=== PATIENT | male | born 2000 | race Caucasian/White ===

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

== ENCOUNTER 2020-04-20 23:19 | Emergency (ER) | payer MEDICAID ==
[2020-04-20] MEDS ORDERED: XYLOCAINE 1% HCL 20 ML MDV IJ ONE (23:20)
--- NOTE | 2020-04-20 23:22 | ERPHSYRPT ---
- History of Present Illness Time Seen by Provider: 04/20/20 23:22 Source: patient Exam Limitations: no limitations Physician History: This is a 19-year-old white male who has had left upper tooth ache for 2 days and a left earache that has worsened over the last 24 hours. Patient did use ibuprofen. There was some [id number] eardrops that were also used. The pain has worsened in his left ear. Patient has has no cough, no fever, no sore throat, no chest pain, no shortness of air. Timing/Duration: abrupt onset, this morning Severity: moderate ENT Location: ear (L), dental Prearrival Treatment: over the counter meds Associated Symptoms: ear pain (L), tooth pain (Upper molar on the left side), other Allergies/Adverse Reactions: No Known Drug Allergies Allergy (Verified 04/20/20 23:25) Hx Tetanus, Diphtheria Vaccination/Date Given: Yes Hx Influenza Vaccination/Date Given: No Hx Pneumococcal Vaccination/Date Given: No Travel Risk - International Travel Have you traveled outside of the country in past 3 weeks: No - Coronavirus Screening Are you exhibiting any of the following symptoms?: No Close contact with a COVID-19 positive Pt in past 14-21 Days: No - Review of Systems Constitutional: No Symptoms Eyes: No Symptoms Ears, Nose, & Throat: Ear Pain (Left), Other (Left upper molar dental pain) Respiratory: No Symptoms Cardiac: No Symptoms Abdominal/Gastrointestinal: No Symptoms Genitourinary Symptoms: No Symptoms Musculoskeletal: No Symptoms Skin: No Symptoms Neurological: No Symptoms Psychological: No Symptoms Endocrine: No Symptoms Hematologic/Lymphatic: No Symptoms Immunological/Allergic: No Symptoms All Other Systems: Reviewed and Negative - Past Medical History Pertinent Past Medical History: Yes Neurological History: Migraines ENT History: No Pertinent History Cardiac History: No Pertinent History Respiratory History: Asthma Endocrine Medical History: No Pertinent History Musculoskeletal History: No Pertinent History GI Medical History: GERD History: No Pertinent History Psycho-Social History: Depression Male Reproductive Disorders: No Pertinent History - Past Surgical History Past Surgical History: Yes Neuro Surgical History: No Pertinent History Cardiac: No Pertinent History Respiratory: No Pertinent History Gastrointestinal: No Pertinent History Genitourinary: No Pertinent History Musculoskeletal: No Pertinent History Male Surgical History: No Pertinent History Other Surgical History: T&A - Social History Smoking Status: Never smoker Exposure to second hand smoke: No Drug Use: none Patient Lives Alone: No - Nursing Vital Signs Nursing Vital Signs: Initial Vital Signs Temperature 98.3 F 04/20/20 23:20 Pulse Rate 86 04/20/20 23:20 Respiratory Rate 16 04/20/20 23:20 Blood Pressure 150/110 04/20/20 23:20 O2 Sat by Pulse Oximetry 97 04/20/20 23:20 Pain Scale Pain Intensity 8 - Physical Exam General Appearance: no apparent distress, alert, anxiety Eye Exam: bilateral eye: normal inspection, PERRL, EOMI Ear Exam: right ear: canal normal, TM normal, left ear: swelling (Left ear canal), tenderness (Left ear canal), TM dull, bilateral ear: auricle normal Nasal Exam: normal inspection Throat Exam: pharynx normal, dental tenderness (Upper molar with fracture on left side) Neck Exam: normal inspection, non-tender, supple, full range of motion, trachea midline Cardiovascular/Respiratory Exam: chest non-tender, no respiratory distress Abdominal Exam: non-tender Neurologic Exam: alert, oriented x 3, cooperative, integration architect II-XII nml as tested, no rmal mood/affect, nml cerebellar function, nml station & gait, sensation nml Skin Exam: normal color, warm, dry SpO2 Interpretation: normal O2 Delivery: Room Air - Course Nursing assessment & vital signs reviewed: Yes - Progress Progress: unchanged Counseled pt/family regarding: diagnosis, need for follow-up - Departure Departure Disposition: Home Clinical Impression: Pain, dental, Left otitis media Condition: Stable Critical Care Time: No Additional Instructions: Use Tylenol and ibuprofen for pain control. Follow-up with a dentist for evaluation and management of your dental pain. Take your antibiotics as prescribed. Prescriptions: Cephalexin Mh 500 mg [Keflex 500 mg] 500 mg PO TID #21 capsule
[2020-04-20] MEDS ORDERED: NORCO 5/325 MG PO ONE ×2 (23:51→23:52)
[2020-04-20] MEDS ORDERED: Rocephin 1000 MG INJ IM ONE (23:51)
[2020-04-20] MEDS ORDERED: DELTASONE 20 MG ONE (23:57)
[2020-04-20] MEDS ORDERED: Rocephin 1000 MG INJ ONE (23:58)
[2020-04-20] MEDS ORDERED: NORCO 5/325 MG ONE (23:58)
[2020-04-21 00:28] VITALS: BP 132/96; PULSE 84; O2SAT 99
[2020-04-21] MEDS ORDERED: DELTASONE 20 MG PO ONE (23:51)
== END 2020-04-21 00:27 | disposition home or self-care (01) ==
LOC: ED 23:19
DX: K08.89 Other specified disorders of teeth and supporting structures (principal); H66.92 Otitis media, unspecified, left ear
CPT/HCPCS: 96372; 99284; J0696; A9270-GY

== ENCOUNTER 2020-05-26 17:42 | Emergency (ER) | payer MEDICAID ==
--- NOTE | 2020-05-26 17:48 | ERPHSYRPT ---
- History of Present Illness Time Seen by Provider: 05/26/20 17:48 Source: patient Exam Limitations: no limitations Physician History: This is a 19-year-old white male who has a history of a left ear infection approximately 6 to 8 weeks ago. This morning, approximately 4 AM he noticed the left ear hurting again it has worsened throughout the day. Patient has not had a fever. He has no sore throat. He has no cough. He has had no fevers. He has no myalgias or arthralgias. He has no known drug allergies. Timing/Duration: abrupt onset, this morning Severity: moderate ENT Location: ear (L) Prearrival Treatment: no prearrival treatment Modifying Factors: Improves With: nothing Associated Symptoms: ear pain (L), No cough, No fever, No chills Allergies/Adverse Reactions: No Known Drug Allergies Allergy (Verified 05/26/20 17:49) Hx Tetanus, Diphtheria Vaccination/Date Given: Yes Hx Influenza Vaccination/Date Given: No Hx Pneumococcal Vaccination/Date Given: No Travel Risk - International Travel Have you traveled outside of the country in past 3 weeks: No - Coronavirus Screening Are you exhibiting any of the following symptoms?: No Close contact with a COVID-19 positive Pt in past 14-21 Days: No - Review of Systems Constitutional: No Symptoms Eyes: No Symptoms Ears, Nose, & Throat: Ear Pain (left) Respiratory: No Symptoms Cardiac: No Symptoms Abdominal/Gastrointestinal: No Symptoms Genitourinary Symptoms: No Symptoms Musculoskeletal: No Symptoms Skin: No Symptoms Neurological: No Symptoms Psychological: No Symptoms Endocrine: No Symptoms Hematologic/Lymphatic: No Symptoms Immunological/Allergic: No Symptoms All Other Systems: Reviewed and Negative - Past Medical History Pertinent Past Medical History: Yes Neurological History: Migraines ENT History: No Pertinent History Cardiac History: No Pertinent History Respiratory History: Asthma Endocrine Medical History: No Pertinent History Musculoskeletal History: No Pertinent History GI Medical History: GERD History: No Pertinent History Psycho-Social History: Depression Male Reproductive Disorders: No Pertinent History - Past Surgical History Past Surgical History: Yes Neuro Surgical History: No Pertinent History Cardiac: No Pertinent History Respiratory: No Pertinent History Gastrointestinal: No Pertinent History Genitourinary: No Pertinent History Musculoskeletal: No Pertinent History Male Surgical History: No Pertinent History Other Surgical History: T&A - Social History Smoking Status: Never smoker How long have you smoked: 5 Exposure to second hand smoke: No Drug Use: none Patient Lives Alone: No - Nursing Vital Signs Nursing Vital Signs: Initial Vital Signs Temperature 98.3 F 05/26/20 17:49 Pulse Rate 89 05/26/20 17:49 Respiratory Rate 18 05/26/20 17:49 Blood Pressure 149/71 05/26/20 17:49 O2 Sat by Pulse Oximetry 97 05/26/20 17:49 Pain Scale Pain Intensity 6 - Physical Exam General Appearance: no apparent distress, alert, anxiety Eye Exam: bilateral eye: normal inspection, PERRL, EOMI Ear Exam: right ear: canal normal, TM normal, left ear: erythema, tenderness, TM red, bilateral ear: auricle normal Nasal Exam: normal inspection Throat Exam: normal, pharynx normal Neck Exam: normal inspection, non-tender, supple, full range of motion, trachea midline Cardiovascular/Respiratory Exam: chest non-tender Abdominal Exam: non-tender Neurologic Exam: alert, oriented x 3, cooperative, qa developer II-XII nml as tested, normal mood/affect, nml cerebellar function, nml station & gait, sensation nml Skin Exam: normal color, warm, dry SpO2 Interpretation: normal O2 Delivery: Room Air - Course Nursing assessment & vital signs reviewed: Yes Ordered Tests: Medication Summary Generic Name Dose Route Start Last Admin Trade Name Freq PRN Reason Stop Dose Admin Prednisone 20 mg 05/27/20 18:25 05/26/20 18:28 Deltasone 20 Mg PO 05/27/20 18:26 20 mg STAT ONE Administration Discontinued Medications Generic Name Dose Route Start Last Admin Trade Name Freq PRN Reason Stop Dose Admin Azithromycin 500 mg 05/26/20 18:24 05/26/20 18:28 Zithromax 250 Mg Tablet PO 05/26/20 18:25 500 mg STAT ONE Administration Azithromycin Confirm 05/26/20 18:27 Zithromax 250 Mg Tablet Administered 05/26/20 18:28 Dose 500 mg .ROUTE .STK-MED ONE Prednisone Confirm 05/26/20 18:27 Deltasone 20 Mg Administered 05/26/20 18:28 Dose 20 mg .ROUTE .STK-MED ONE - Progress Progress: unchanged Counseled pt/family regarding: diagnosis, need for follow-up - Departure Departure Disposition: Home Clinical Impression: Left otitis media Condition: Stable Critical Care Time: No Referrals: ARLENE NELSON [Primary Care Provider] - Additional Instructions: Use Tylenol for pain. Follow-up scribing physician if symptoms persist. 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 Prescriptions: Prednisone 5 mg [Deltasone 5 mg] 5 mg PO TID #12 tablet Azithromycin 250 mg [Zithromax 250 MG TABLET] 250 mg PO ZPACK #6 tablet
[2020-05-26 17:54] VITALS: BP 149/71; PULSE 89; O2SAT 97
[2020-05-26] MEDS ORDERED: Zithromax 250 MG TABLET PO ONE (18:24)
[2020-05-26] MEDS ORDERED: Zithromax 250 MG TABLET ONE (18:27)
[2020-05-26] MEDS ORDERED: DELTASONE 20 MG ONE (18:27)
[2020-05-27] MEDS ORDERED: DELTASONE 20 MG PO ONE (18:25)
== END 2020-05-26 18:56 | disposition home or self-care (01) ==
LOC: ED 17:42
DX: H66.92 Otitis media, unspecified, left ear (principal)
CPT/HCPCS: 99283; A9270-GY

== ENCOUNTER 2024-04-23 02:04 | Emergency (ER) | payer BC ==
[2024-04-23 02:29] VITALS: TEMP 98.4
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
--- NOTE | 2024-04-23 03:48 | XRAY ---
CLINICAL HISTORY: neck pain COMPARISON: No previous studies are available for comparison. TECHNIQUE: CT scan of the cervical spine was performed without the administration of intravenous contrast. Contiguous axial images were obtained from the skull base to the upper thoracic spine. Coronal and sagittal reformatted images were also reviewed. One of the following dose reduction techniques was utilized for this exam. Automated exposure control, adjustment of the mA and/or kV according to patient size, and use of iterative reconstruction. CTDI: 21.66mGy, DLP: 554.81mGy*cm. FINDINGS: Vertebrae: The vertebral bodies are normal in height and alignment. Mild degenerative changes are identified in cervical spine with osteophytes. No evidence of acute fracture or dislocation. The cortical and trabecular bone patterns are normal. Small bone island is identified in dens Normal configuration of the posterior elements. Small sclerotic focus is identified along the superior articular facet of the visualized T3 vertebral body likely bone island. Intervertebral Discs: The intervertebral disc spaces are preserved. No calcifications or ossifications were noted within the discs. At C2-C3, no disc bulge is identified. At C3-C4, 1.8 mm disc bulge with osteophytes causing thecal sac indentation. No evidence of neural foraminal narrowing. At C4-C5, 2.3 mm disc bulge causing thecal sac indentation and mild right-sided neural foraminal narrowing. No neural foraminal stenosis on left side. At C5-C6, 2.8 mm disc bulge with osteophytes causing thecal sac indentation and mild bilateral neural foramina narrowing. At C6-C7, 2.3 mm disc bulge with osteophytes causing thecal sac indentation with no gross neural foraminal stenosis bilaterally. Facet Joints: The facet joints are normal without evidence of dislocation, subluxation, or significant degenerative changes. Prevertebral Soft Tissues: Paravertebral soft tissues are grossly normal. Additional Findings: Mucosal thickening identified in right maxillary sinus on covered images IMPRESSION: 1. No evidence of acute fracture, or dislocation. 2. Mild cervical spondylosis, without spondylolisthesis. 3. Disc bulge/ disc with osteophytes are identified at C3-C4 C4-C5 C5-C6 and C6-C7 levels, 1, however no significant thecal sac or neural foraminal compression. 4. Mild right maxillary sinusitis on covered images Electronically Signed by: Adria Lira MD. (04/23/2024 03:45:16 EDT)
--- NOTE | 2024-04-23 04:02 | XRAY ---
CLINICAL HISTORY: DECREASED O2 SATS COMPARISON: None. TECHNIQUE: Contiguous axial CT images of the chest were acquired without contrast. Coronal and sagittal reconstructions were obtained. One of the following dose reduction techniques were utilized for this exam: Automated exposure control, adjustment of the mA and/or kV according to patient size, use of iterative reconstruction. FINDINGS: The scanned pulmonary parenchyma shows no definite consolidative lesions. Left upper lung lobe calcified nodule, measuring about 3 mm suggestive of old granuloma. No free or encysted pleural effusion. Heart size is normal, and there is no pericardial effusion. No pathologically enlarged mediastinal, hilar or axillary lymph node identified. There is no definite mass lesion in the chest wall. A well-defined rounded hypodense lesion seen at the spleen, measuring about 3 x 2.6 cm, likely cyst. The visualized aspect of the left shoulder bones reveals a lucent line within the distal clavicle. IMPRESSION: 1. No acute cardiopulmonary pathology. 2. Left upper lung lobe small calcified nodule, measuring 3 mm suggestive of old granuloma. 3. The visualized aspect of the left shoulder bones reveals a lucent line within the distal left clavicle, could represent a non-displaced fracture. 4. Hypodense lesion seen within the spleen, likely cyst, would recommend ultrasound abdomen for further evaluation if clinically warranted. Electronically Signed by: Adria Lira MD. (04/23/2024 03:58:41 EDT)
--- NOTE | 2024-04-23 04:16 | XRAY ---
CLINICAL HISTORY: headache COMPARISON: None. TECHNIQUE: Axial noncontrast CT scan of the brain was performed from the skull base to the high parietal region with coronal and sagittal reformats. One of the following dose reduction techniques was utilized for this exam: Automated exposure control, adjustment of the mA and/or kV according to patient size, use of iterative reconstruction. CTDI: 53.92mGY, DLP: 1016.25mGy*cm. FINDINGS: The visualized brain parenchyma shows normal appearance. No focal parenchymal abnormalities are demonstrated. Nicholson-white matter differentiation is maintained. No midline shifts or deformity. No intracerebral or extra axial hematoma. Normal size and configuration of the cerebral ventricles. Normal CT appearance of the posterior fossa structures namely the cerebellar hemispheres, brainstem, and cerebellar peduncles. The cerebello-pontine angles are clear. The osseous structures in the skull base are unremarkable. No definite calvarium fractures. Polypoidal mucosal thickening of the right maxillary sinus. IMPRESSION: 1. Normal noncontrast CT of the brain. No evidence of established infarction, intracranial or extracranial hemorrhage. 2. Right maxillary chronic sinusitis. Electronically Signed by: Adria Lira MD. (04/23/2024 04:13:17 EDT)
--- NOTE | 2024-04-23 04:21 | XRAY ---
CLINICAL HISTORY: left shoulder pain COMPARISON: None. TECHNIQUE: Thin axial images of the left shoulder joint without contrast were obtained with sagittal and coronal reconstruction. One of the following dose reduction techniques were utilized for this exam: Automated exposure control, adjustment of the mA and/or kV according to patient size, and use of iterative reconstruction. FINDINGS: Bones: Undisplaced fracture is identified at the lateral aspect of the left clavicle. Mild overlying soft tissue swelling with fatty stranding is identified. Normal alignment of the humeral head, scapula, and glenoid. Normal bone density. Glenohumeral Joint: Normal joint space without significant narrowing. No evidence of loose bodies or intra-articular fragments. Normal enhancement post-contrast. Acromioclavicular (AC) Joint: Normal appearance of the AC joint. No evidence of AC joint separation or degenerative changes. Rotator Cuff: No calcification seen in the locations of tendons On covered images calcified granuloma is identified in the left lung upper lobe measuring 4 x 4 mm. On covered images of abdomen there is low attenuation area in the spleen measuring 27 x 21 mm IMPRESSION: Undisplaced fracture of the lateral head of the left clavicle, with mild overlying soft tissue swelling and fatty stranding. Electronically Signed by: Adria Lira MD. (04/23/2024 04:17:04 EDT)
[2024-04-23] MEDS ORDERED: TYLENOL 325 MG ONE (04:43)
[2024-04-23] MEDS: TYLENOL 325 MG PO STA (04:44)
[2024-04-23] MEDS: TORAdol 10 MG TABLET PO ONE (04:47)
[2024-04-23 05:02] VITALS: BP 145/100; PULSE 94; RESP 18
[2024-04-24 10:51] VITALS: O2SAT 96
== END 2024-04-23 05:03 | disposition home or self-care (01) ==
LOC: MERGE 02:04 → ED 02:04
DX: S42.035A Nondisplaced fracture of lateral end of left clavicle, initial encounter for closed fracture (principal); V48.5XXA Car driver injured in noncollision transport accident in traffic accident, initial encounter; F10.129 Alcohol abuse with intoxication, unspecified; Y90.6 Blood alcohol level of 120-199 mg/100 ml; M54.2 Cervicalgia; R51.9 Headache, unspecified; Z72.0 Tobacco use
CPT/HCPCS: 36415; 70450; 71250; 72125; 73200; 82077; 99285; A9270-GY

== ENCOUNTER 2024-04-23 02:48 | Emergency (ER) | payer BC, MEDICAID | END 2024-04-23 03:32 | LOC: ED 02:48 | DX: Z53.9 Procedure and treatment not carried out, unspecified reason (principal) ==